=== PATIENT | female | born 1985 | race Caucasian/White ===

== ENCOUNTER 2019-12-23 20:36 | Observation (INO) | payer OTHER ==
[~2019-12-23] VITALS: Ht 165.1 cm; Wt 72.4 kg
[~2019-12-23 20:36] MED LIST: CEPH250A; CIPRSO OU; CLIN150; DIPH50 PO; FERR325 PO; Flomax0.4 MG PO; IBUP600 PO; MULVITMINE PO; PERM5TC TOP; Percocet 5-3251 EACH PO; TRAM50 PO; Zofran8 MG PO
[2019-12-23 21:06] LABS: BASOPHILS ABSOLUTE AUTO 0.06 K/mm3 (0.00-0.23); BASOPHILS PERCENT AUTO 1 % (0-2); EOSINOPHILS ABSOLUTE AUTO 0.24 K/mm3 (0.00-0.68); EOSINOPHILS PERCENT AUTO 2 % (0-6); Hematocrit 40.9 % (33.0-51.0); Hemoglobin 14.3 g/dL (11.5-16.0); IMMATURE GRAN ABSOLUTE AUTO 0.07 K/mm3 (0.00-0.10); IMMATURE GRAN PERCENT AUTO 1 % (0-1); LYMPHOCYTES PERCENT AUTO 17 % (21-46); MONOCYTES ABSOLUTE AUTO 0.81 K/mm3 (0.16-1.47); MONOCYTES PERCENT AUTO 7 % (4-13); Mean Corpuscular HGB 32.1 pg (26.0-34.0); Mean Corpuscular Volume 92 fL (80-100); Mean Platelet Volume 10.5 fL (9.1-12.4); NEUTROPHILS ABSOLUTE AUTO 8.24 K/mm3 (1.96-9.15); NEUTROPHILS PERCENT AUTO 73 % (41-73); Platelet Count 393 K/mm3 (150-400); RDW Coefficient Variation 11.9 % (11.7-14.2); RDW Standard Deviation 40.7 fL (35.1-46.3); Red Blood Cell Count 4.45 M/mm3 (3.80-5.20); White Blood Cell Count 11.32 K/mm3 (4.00-11.30)
[2019-12-24 00:16] LABS: Alanine Aminotransfer (ALT/SGP 33 U/L (12-78); Albumin, Blood 4.4 g/dL (3.4-5.0); Alk Phos 69 U/L (50-136); Anion Gap 7 mmol/L (6-16); Aspartate Aminotrans (AST/SGOT 22 U/L (12-37); Bilirubin, Total 0.4 mg/dL (0.1-1.0); Blood Urea Nitrogen 10 mg/dL (8-24); Bun/Creatinine Ratio 14.4 (12.0-20.0); CO2, Blood 29 mmol/L (21-32); Calcium, Blood 10.1 mg/dL (8.5-10.1); Chloride, Blood 102 mmol/L (98-108); Globulin, Blood 4.3 g/dL (2.2-4.0); Glomerular Filtration Rate >60 (60-); Glucose, Blood 107 mg/dL (70-99); Potassium, Blood 3.8 mmol/L (3.5-5.5); Sodium, Blood 138 mmol/L (136-145); Total Protein, Blood 8.7 g/dL (6.4-8.2)
[2019-12-24 02:07] LABS: Source, Urine Clean Catch
[2019-12-24 02:11] LABS: Bilirubin, Urine Neg (Neg); Blood, Urine 1+ (Neg); Glucose Qualitative, Urine Neg (Neg); Ketones, Urine Neg (Neg); Leukocyte Esterase, Urine Neg (Neg); Nitrite, Urine Neg (Neg); Protein, Urine Neg (Neg); Urobilinogen, Urine NORM (Normal)
[2019-12-24 02:17] LABS: Appearance, Urine Clear (Clear); Color, Urine Yellow (P-Yellow)
[2019-12-24 02:18] LABS: Amorphous Mod (0-Heavy); Bacteria Rare /hpf; Red Blood Cells, Urine Rare /hpf (0-2); Squamous Epithelial Cells Few /hpf (Few); White Blood Cells, Urine Not Seen /hpf (0-5)
--- NOTE | 2019-12-24 05:30 | NUR ---
ARRIVAL NOTE AND SHIFT SUMMARY RECEIVED HAND OFF FROM Neftaly GEORGE RN. TRANSPORTED TO ROOM VIA STRETCHER. TRANSFERED SELF TO BED AFTER USING COMMODE, IS CONTINENT OF BOWEL AND BLADDER. IV ABX INFUSING VIA PUNP TO RIGHT AC 20G PIV THAT IS PATENT AND FLUSHES WITH EASE. LYING IN SEMI FOWLERS WITH EYES OPEN. AAO X3, LOMELI, FOLLOWS ALL COMMANDS, PLEASANT AND COOPERATIVE. ORIENTED TO ROOM, CALL SYSTEM, AND POC, VOICES UNDERSTANDING. RESPIRATIONS EVEN AND UNLABLABORED ON ROOM AIR. LUNG SOUNDS CLEAR BILATERALLY. ABDOMEN MILDLY DISTENDED AND TENDER TO THE TOUCH. STATES THE PAIN HAS BEEN ONGOING FOR ABOUT 2 WEEKS TO A MONTH. VOICES THAT DILAUDID GIVEN IN ER HELPS CONTROL PAIN WELL. DENIES FURTHER NEEDS OR WANTS AT THIS TIME. SAFETY MEASURES IN PLACE. WILL CONTINUE TO MONITOR AND GIVE HAND OFF TO ONCOMING SHIFT USING SBAR DURING BEDSIDE REPORT.
--- NOTE | 2019-12-24 15:24 | NUR ---
SURGERY: PT TO SURGERY AT THIS TIME. SURGICAL PKT COMPLETED. WILL CONT TO MONITOR WHEN RETURNS TO ROOM POST OP.
--- NOTE | 2019-12-24 16:00 | NUR ---
12/24/19 1600 Juan Swanson PATIENT ON SCHEDULDED ANTIBIOTICS
--- NOTE | 2019-12-24 18:38 | NUR ---
PT S/P LAP MAGY THIS EVENING. PT UP IN ROOM. VOIDING WELL. ROBERTO CLEARS AT THIS TIME. ADVANCE DIET TOLERATED. DENIES PAIN. NO NAUSEA. LAP SITES X4 WITH SMALL AMT OOZING. LS CLEAR. IV SL. PLAN FOR DC HOME TONIGHT IF PATIENT PAIN CONTROLLED, ROBERTO DIET AND AMBULATING WELL.
[2019-12-24] MEDS ORDERED: HYDR1TAB94 PO (19:21)
--- NOTE | 2019-12-24 20:09 | NUR ---
DISCHARGE D/C INSTRUCTIONS PROVIDED TO PATIENT. PT REPORTS UNDERSTANDING. IV'S DC'D WNL. SCRIPT SENT HOME WITH PT. PT REPORTS SHE FEELS READY TO GO HOME AND HAS NO CONCERNS OR QUESTIONS ABOUT DC INSTRUCTIONS. VSS. REPORTS PAIN IS QUITE MANAGEABLE. PT HAS BEEN AMBULATING IN [place], REPORTS PASSING GAS, VOIDING, AND TOLERATING PO INTAKE. PT'S FAMILY PICKED UP PT IN PERSONAL VEHICLE; PT TAKEN TO CAR BY WHEELCHAIR BY RN. PERSONAL BELONGINGS SENT HOME WITH PT.
== END 2019-12-24 20:15 | disposition home or self-care (01) ==
LOC: ER 20:36 → SURS 20:37
PROVIDERS: Emergency Medicine; ADMIT Surgery
PROC: 0FT44ZZ Resection of Gallbladder, Percutaneous Endoscopic Approach (ICD-10-PCS; principal; 2019-12-24 15:30)
PROC: BF03YZZ Plain Radiography of Gallbladder and Bile Ducts using Other Contrast (ICD-10-PCS; principal; 2019-12-24 15:30)
DX: K80.10 Calculus of gallbladder with chronic cholecystitis without obstruction (principal); Z87.891 Personal history of nicotine dependence
CPT/HCPCS: 36415; 74300; 76700; 80053; 81001; 83690; 85025; 96361; 96365; 96375; 96376; 99284-25; C1729; G0378; J1100; J1170; J1885; J2250; J2405; J2543; J2704; J2710; J3010; J7030; J7120

== ENCOUNTER → 2020-03-09 | Outpatient (CLI) | payer OTHER ==
[~2020-03-09] MED LIST changes: +HYDR1TAB94 PO
[2020-03-10 15:11] LABS: HPV 16 Negative (Negative); HPV 18 Negative (Negative); HPV OTHER HR TYPES Negative (Negative)
== END ==
LOC: LAB SHORT 09:20 → LAB UCHC 09:20
PROVIDERS: Registered Nurse Community Health
DX: Z12.4 Encounter for screening for malignant neoplasm of cervix (principal); F17.210 Nicotine dependence, cigarettes, uncomplicated
CPT/HCPCS: 87624; G0123

== ENCOUNTER → 2024-06-16 | Outpatient (CLI) | payer OTHER | LOC: LAB 13:10 → LAB SHORT 13:10 | DX: R35.0 Frequency of micturition (principal) | CPT/HCPCS: 87077; 87086; 87186 ==